=== PATIENT | male | born 1945 | race Caucasian/White ===

== ENCOUNTER 2016-08-10 09:17 | Observation (INO) | payer MEDICARE ==
[~2016-08-10] VITALS: Ht 185.4 cm; Wt 81.6 kg
[2016-08-10 09:59] LABS: Basophils # (auto) 0.1 uL; Basophils % (auto) 1.1 % (0.0-2.0); Eosinophils # (auto) 0.2 uL; Eosinophils % (auto) 1.5 % (0.0-7.0); Hematocrit 50.8 % (41.0-53.0); Hemoglobin 16.9 g/dL (13.5-17.5); Lymphocytes # (auto) 1.6 uL; Lymphocytes % (auto) 12.2 % (10.0-50.0); Mean Corpuscular Hemoglobin 31.5 pg (28.0-32.0); Mean Corpuscular Hgb Conc. 33.2 g/dL (32.0-36.0); Mean Corpuscular Volume 94.8 fL (80.0-100.0); Mean Platelet Volume 10.2 fL (7.4-10.4); Monocytes # (auto) 1.1 uL; Monocytes % (auto) 8.8 % (0.0-12.0); Neutrophils # (auto) 9.9 uL; Neutrophils % (auto) 76.4 % (37.0-80.0); Platelet Count (auto) 271 10^3/uL (140-450); Red Cell Distribution Width 14.2 % (11.6-16.0); SUSPECT VIEW TRANSMISSION; White Blood Cell 12.9 10^3/uL (4.4-10.8)
[2016-08-10 10:28] LABS: Albumin 3.6 g/dL (3.4-5.0); Alkaline Phosphatase 54 U/L (45-117); Anion Gap 7 (5-15); Aspartate Aminotransferase 14 U/L (15-37); BUN/Creatinine Ratio 12.5; Bilirubin, Total 0.7 mg/dL (0.2-1.0); Blood Urea Nitrogen 27 mg/dL (7-18); Calcium 9.2 mg/dL (8.5-10.1); Carbon Dioxide 26 mmol/L (21-32); Chloride 109 mmol/L (98-107); GFR African American 39 mL/min; GFR Non-African American 32 mL/min; Glucose 182 mg/dL (74-106); Potassium 3.9 mmol/L (3.5-5.1); Sodium 142 mmol/L (136-145); Total Protein 7.6 g/dL (6.4-8.2)
[2016-08-10 11:22] LABS: Urine Bilirubin Negative (Negative); Urine Blood Negative /uL (Negative); Urine Color Yellow (Yellow); Urine Glucose Normal (Normal); Urine Ketone Negative (Negative); Urine Nitrite Negative (Negative); Urine RBC 1 /hpf (0 - 3); Urine Squamous Epithelial Cell FEW /hpf (<5); Urine Urobilinogen Normal (Negative); Urine pH 5.5 (5.0-8.0)
[2016-08-10 15:32] VITALS: BP 160/80
== END 2016-08-10 15:55 | disposition home or self-care (01) | DRG 880 ==
LOC: ER 09:17 → OVERFLOW 11:13 → ER 15:55
PROVIDERS: ADMIT Emergency Medicine; ATTEND Emergency Medicine
DX: F41.9 Anxiety disorder, unspecified (principal); F32.9 Major depressive disorder, single episode, unspecified; R10.9 Unspecified abdominal pain
CPT/HCPCS: 36415; 80053; 81001; 82962; 83690; 84484; 85025; 93005; 99285; G0378

== ENCOUNTER 2019-10-13 11:28 | Inpatient (IN) | payer MEDICARE ==
[~2019-10-13] VITALS: Ht 185.4 cm; Wt 93.6 kg
[2019-10-13 12:55] LABS: Basophils # (auto) 0.1 10 ^3/uL (0-0.2); Basophils % (auto) 0.9 % (0.0-2.0); Eosinophils # (auto) 0.2 10 ^3/uL (0-0.8); Eosinophils % (auto) 2.4 % (0.0-7.0); Hematocrit 45.5 % (41.0-53.0); Hemoglobin 14.7 g/dL (13.5-17.5); Lymphocytes % (auto) 10.3 % (10.0-50.0); Mean Corpuscular Hgb Conc. 32.3 g/dL (32.0-36.0); Mean Corpuscular Volume 95.8 fL (80.0-100.0); Monocytes # (auto) 0.8 10 ^3/uL (0-1.3); Monocytes % (auto) 8.5 % (0.0-12.0); Neutrophils # (auto) 7.6 10 ^3/uL (1.6-8.6); Neutrophils % (auto) 77.9 % (37.0-80.0); Platelet Count (auto) 261 10^3/uL (140-450); Red Blood Cells 4.75 10^6/uL (4.5-5.90); Red Cell Distribution Width 13.8 % (11.8-14.3); White Blood Cell 9.7 10^3/uL (4.4-10.8)
[2019-10-13 13:16] LABS: Albumin 3.4 g/dL (3.4-5.0); Anion Gap 7 (5-15); Blood Urea Nitrogen 55 mg/dL (7-18); Calcium 8.5 mg/dL (8.5-10.1); Carbon Dioxide 23 mmol/L (21-32); Chloride 108 mmol/L (98-107); Glucose 150 mg/dL (74-106); Potassium 5.4 mmol/L (3.5-5.1); Sodium 138 mmol/L (136-145)
[2019-10-13 13:22] LABS: Alanine Aminotransferase 28 U/L (16-61); Alkaline Phosphatase 67 U/L (45-117); Aspartate Aminotransferase 12 U/L (15-37); BUN/Creatinine Ratio 17.4; Bilirubin, Total 0.4 mg/dL (0.2-1.0); GFR African American 25 mL/min; GFR Non-African American 21 mL/min; Total Protein 7.4 g/dL (6.4-8.2)
[2019-10-13 18:57] LABS: Urine Bacteria NONE SEEN /hpf (None Seen); Urine Blood Negative /uL (Negative); Urine Hyaline Cast FEW /lpf (0 - 2); Urine Specific Gravity 1.017 (1.001-1.035); Urine WBC 3 /hpf (0 - 3)
[2019-10-13] MEDS ORDERED: DEXTROSE (50%) 50ML SYRG IV PRN (20:00)
[2019-10-13] MEDS ORDERED: METOCLOPRAMIDE HCL 5MG/ml INJ 2ml VIAL IV PRN (20:00)
[2019-10-13] MEDS ORDERED: InsuLIN REG 1unit/0.01ml Soln (100units/ml) IV ONE (20:00)
[2019-10-13] MEDS ORDERED: SODIUM ZIRCONIUM CYCL 10 GM PAK PO ONE (20:00)
[2019-10-13] MEDS ORDERED: ALBUTEROL SULF 2.5 MG/0.5ML(0.5%) NEB SOLN NEB ONE (20:00)
[2019-10-13] MEDS ORDERED: SODIUM BICARBONATE 8.4% INJ 50ML SYRINGE IV ONE (20:00)
[2019-10-13] MEDS ORDERED: DOCUSATE SOD 100 MG CAP PO PRN (20:00)
[2019-10-13] MEDS ORDERED: hydrALAZINE HCL 20 MG/ML VL IV PRN (20:00)
[2019-10-13] MEDS ORDERED: CALCIUM CHL 100MG/ML 500 MG in D5W 5% 100 ML IV ONE (20:00)
[2019-10-13] MEDS ORDERED: NITROGLYCERIN 0.4 MG SL TAB SL PRN (20:00)
[2019-10-13] MEDS ORDERED: ALUM & MAG HYDROX-SIMETH LIQ(MAALOX) 30 ML PO PRN (20:00)
[2019-10-13] MEDS ORDERED: HYDROcodone-ACET 5/325MG TAB PO PRN (20:00)
[2019-10-13] MEDS ORDERED: FUROSEMIDE 40 MG/4 ML VIAL IV ONE (20:00)
[2019-10-13] MEDS ORDERED: LACTATED RINGER'S 1,000 ML IV ONE (20:00)
[2019-10-13] MEDS ORDERED: MORPHINE SULF INJ 2 MG/ML SYRINGE 1ML IV PRN ×2 (20:00)
[2019-10-13] MEDS ORDERED: DEXTROSE (50%) 50ML SYRG IV ONE (20:15)
[2019-10-13 20:43] LABS: Amphetamine Screen, Urine NEGATIVE (NEGATIVE); Barbiturate Scree,Urine NEGATIVE (NEGATIVE); Benzodiazephine Screen, Urine NEGATIVE (NEGATIVE); Cannabinoid Screen, Urine NEGATIVE (NEGATIVE); Cocaine Screen, Urine NEGATIVE (NEGATIVE); Opiate Scree,Urine NEGATIVE (NEGATIVE); Phencyclidine Screen, Urine NEGATIVE (NEGATIVE)
[2019-10-13 22:03] VITALS: BP 138/86
--- NOTE | 2019-10-13 22:03 | NUR ---
ADMISSION NOTE PT ADMITTED TO ROOM 274-B IN STABLE COND. PT ORIENTED TO ROOM AND PROCEDURES AND POC DISCUSSED WITH PT. pT VERBALIZES UNDERSTANDING. PT IS RASHID PO FLUIDS AT THIS TIME AND IS NOTED TO HAVE SOME HAND TREMORS THAT PT STATES HE HAS HAD SINCE 1700 THIS EVENING. WHEN ASKED IF HE DRINKS ANY ALCOHOLIC BEVERAGES PT DENIES ANY ALCOHOL AT ALL. BED IS LOW , WHEELS ARE LOCKED, AND CALL LIGHT IS WITH IN REACH.
[2019-10-13] MEDS: LACTATED RINGER'S 1,000 ML IV SCH (22:52)
[2019-10-13] MEDS: SODIUM ZIRCONIUM CYCL 10 GM PAK PO SCH (22:54)
[2019-10-13] MEDS: hydrALAZINE HCL 25 MG TAB PO SCH (22:54)
[2019-10-13] MEDS: METOPROLOL TARTRATE 25 MG TAB PO SCH (22:55)
[2019-10-13 22:56] VITALS: BP 138/86
[2019-10-13] MEDS: InsuLIN REG 1unit/0.01ml Soln (100units/ml) SC SCH (22:57)
[2019-10-13] MEDS: INSULIN LANTUS (GLARGINE) 1 /0.01ml (100units/ml) SC SCH (22:58)
[2019-10-13] MEDS: ACCU-CHEK COMFORT CURVE STRIP VI SCH (22:59)
[2019-10-13 23:30] LABS: Cholesterol 126 mg/dL (< 200); HDL Cholesterol 36 mg/dL (40-59); LDL Cholesterol 67 mg/dL (< 100); Triglycerides 156 mg/dL (< 150)
[2019-10-14] MEDS: LORazepam 0.5 MG TAB PO PRN ×2 (01:42→21:44)
[2019-10-14 04:57] VITALS: BP 112/57
[2019-10-14 05:56] LABS: Basophils # (auto) 0 10 ^3/uL (0-0.2); Basophils % (auto) 0.5 % (0.0-2.0); Eosinophils # (auto) 0.2 10 ^3/uL (0-0.8); Eosinophils % (auto) 1.7 % (0.0-7.0); Hemoglobin 12.9 g/dL (13.5-17.5); Lymphocytes # (auto) 1.3 10 ^3/uL (0.4-5.4); Lymphocytes % (auto) 12.5 % (10.0-50.0); Mean Corpuscular Hemoglobin 31.3 pg (28.0-32.0); Monocytes # (auto) 1.2 10 ^3/uL (0-1.3); Monocytes % (auto) 11.4 % (0.0-12.0); Neutrophils # (auto) 7.5 10 ^3/uL (1.6-8.6); Neutrophils % (auto) 73.9 % (37.0-80.0); Platelet Count (auto) 228 10^3/uL (140-450); Red Blood Cells 4.11 10^6/uL (4.5-5.90); Red Cell Distribution Width 13.7 % (11.8-14.3); White Blood Cell 10.2 10^3/uL (4.4-10.8)
[2019-10-14 06:08] LABS: Calcium 8.7 mg/dL (8.5-10.1); Magnesium 2.2 mg/dL (1.6-2.6); Potassium 4.1 mmol/L (3.5-5.1)
[2019-10-14 06:12] LABS: BUN/Creatinine Ratio 19.5; Bilirubin, Total 0.3 mg/dL (0.2-1.0); INR 0.99 (0.9-1.15); Partial Thromboplastin Time 24.9 sec (23.64-32.05); Phosphorus 4.4 mg/dL (2.5-4.90); Total Protein 6.1 g/dL (6.4-8.2)
--- NOTE | 2019-10-14 06:45 | NUR ---
Pt's glucose =38 and then rechecked for 37. Pt given juice and milk and jello and he is emilee well. Pt is asymptomatic at this time. A&O x 4, resp rate is even and unlabored, color is wnl and skin is warm and dry.
[2019-10-14] MEDS: FUROSEMIDE 40 MG/4 ML VIAL IV SCH ×2 (06:53→17:58)
[2019-10-14] MEDS: SODIUM ZIRCONIUM CYCL 10 GM PAK PO SCH (06:53)
[2019-10-14] MEDS: SUCRALFATE 1 GM/10 ML ORAL SUSP PO SCH ×3 (06:53→17:21)
[2019-10-14] MEDS: InsuLIN REG 1unit/0.01ml Soln (100units/ml) SC SCH ×4 (06:54→21:43)
[2019-10-14] MEDS: INSULIN LISPRO (HUMAN) 100 UNITS/ML ML SC SCH ×3 (06:54→18:02)
[2019-10-14] MEDS: ACCU-CHEK COMFORT CURVE STRIP VI SCH ×4 (06:55→21:44)
--- NOTE | 2019-10-14 07:12 | NUR ---
GLUCOSE RECHECK= 124.
[2019-10-14 09:00] VITALS: BP 141/49
[2019-10-14] MEDS: hydrALAZINE HCL 25 MG TAB PO SCH ×2 (09:14→21:43)
[2019-10-14] MEDS: METOPROLOL TARTRATE 25 MG TAB PO SCH ×2 (09:14→21:42)
[2019-10-14] MEDS: PANTOPRAZOLE 40 MG/10 ML VIAL INJ IV SCH (09:14)
[2019-10-14] MEDS: CITALOPRAM HYDROBR 20 MG TAB PO SCH (09:14)
[2019-10-14] MEDS: ENOXAPARIN SOD 30 MG/0.3 ML SYRINGE SC SCH (09:15)
[2019-10-14] MEDS: LACTATED RINGER'S 1,000 ML IV SCH (09:20)
[2019-10-14] MEDS ORDERED: PANT40TA2 PO (10:31)
[2019-10-14] MEDS ORDERED: SIMV40TA96 PO (10:31)
[2019-10-14] MEDS ORDERED: SUCR1TAB38 OR (10:31)
[2019-10-14] MEDS ORDERED: IRON100T OR (10:31)
[2019-10-14] MEDS ORDERED: CITA-77 PO (10:31)
[2019-10-14] MEDS ORDERED: ONDA-144 PO (10:31)
[2019-10-14] MEDS ORDERED: ALBU108A14 IN (10:31)
[2019-10-14] MEDS ORDERED: OMEP20TA PO (10:31)
[2019-10-14] MEDS ORDERED: FURO1TAB33 PO (10:31)
[2019-10-14] MEDS ORDERED: ALBU2TAB4 PO (10:31)
[2019-10-14] MEDS ORDERED: MULTCAP45 PO (10:31)
[2019-10-14] MEDS ORDERED: [UNRECOGNIZED DRUG - CODE] IM (10:31)
[2019-10-14] MEDS ORDERED: LORA0.5T12 PO (10:31)
[2019-10-14] MEDS ORDERED: INSLISPI SC (10:31)
[2019-10-14] MEDS ORDERED: CALC600T57 PO (10:31)
[2019-10-14] MEDS ORDERED: LORA1TAB12 PO (10:31)
[2019-10-14] MEDS ORDERED: IRBE300T46 PO (10:31)
[2019-10-14] MEDS ORDERED: ASCO500T11 PO (10:35)
[2019-10-14 13:00] VITALS: BP 137/68
--- NOTE | 2019-10-14 13:28 | NUR ---
spoke with Dr. Graves to clarify lokelma medication, K is 4.1, received order to DC thee and CMP tomorrow.
[2019-10-14 14:53] LABS: Protein, Urine 25.4 mg/dL (0.0-11.9)
[2019-10-14 16:43] VITALS: BP 153/73
--- NOTE | 2019-10-14 19:30 | NUR ---
assumed care, pt. awake, no c/o pain, no sob.
[2019-10-14 21:30] VITALS: BP 151/78
[2019-10-14] MEDS: INSULIN LANTUS (GLARGINE) 1 /0.01ml (100units/ml) SC SCH (21:44)
[2019-10-15 05:00] VITALS: BP 141/82
[2019-10-15] MEDS: FUROSEMIDE 40 MG/4 ML VIAL IV SCH (05:41)
[2019-10-15] MEDS: SUCRALFATE 1 GM/10 ML ORAL SUSP PO SCH (06:11)
[2019-10-15] MEDS: InsuLIN REG 1unit/0.01ml Soln (100units/ml) SC SCH (06:14)
[2019-10-15] MEDS: INSULIN LISPRO (HUMAN) 100 UNITS/ML ML SC SCH (06:14)
[2019-10-15] MEDS: ACCU-CHEK COMFORT CURVE STRIP VI SCH (06:15)
[2019-10-15 07:42] LABS: Basophils # (auto) 0.1 10 ^3/uL (0-0.2); Basophils % (auto) 0.7 % (0.0-2.0); Eosinophils # (auto) 0.3 10 ^3/uL (0-0.8); Eosinophils % (auto) 3.5 % (0.0-7.0); Hematocrit 42.6 % (41.0-53.0); Hemoglobin 14.5 g/dL (13.5-17.5); Lymphocytes # (auto) 1.4 10 ^3/uL (0.4-5.4); Lymphocytes % (auto) 15.2 % (10.0-50.0); Mean Corpuscular Hgb Conc. 33.9 g/dL (32.0-36.0); Mean Corpuscular Volume 94.4 fL (80.0-100.0); Monocytes # (auto) 1.1 10 ^3/uL (0-1.3); Monocytes % (auto) 11.6 % (0.0-12.0); Neutrophils # (auto) 6.4 10 ^3/uL (1.6-8.6); Nucleated Red Blood Cells % 0.1 %; Platelet Count (auto) 243 10^3/uL (140-450); Red Blood Cells 4.51 10^6/uL (4.5-5.90); Red Cell Distribution Width 13.5 % (11.8-14.3); White Blood Cell 9.2 10^3/uL (4.4-10.8)
--- NOTE | 2019-10-15 07:43 | NUR ---
Opening Note Assumed pt care from NOC RN. Pt is a/ox4 with no s/s of distress or SOB. Pt is currently sitting upright in bed eating breakfast with no complaints at this time. Discussed POC with pt; pt verbalized understanding. Safety measures maintained with call light within reach, bed in lowest position and side rails up. Will continue to monitor.
[2019-10-15 07:58] LABS: Albumin 3.3 g/dL (3.4-5.0); Calcium 8.9 mg/dL (8.5-10.1)
[2019-10-15 08:03] LABS: BUN/Creatinine Ratio 18.9; Bilirubin, Total 0.4 mg/dL (0.2-1.0)
[2019-10-15 08:20] VITALS: BP 135/74
[2019-10-15] MEDS: PANTOPRAZOLE 40 MG/10 ML VIAL INJ IV SCH (09:01)
[2019-10-15] MEDS: hydrALAZINE HCL 25 MG TAB PO SCH (09:02)
[2019-10-15] MEDS: METOPROLOL TARTRATE 25 MG TAB PO SCH (09:02)
[2019-10-15] MEDS: ENOXAPARIN SOD 30 MG/0.3 ML SYRINGE SC SCH (09:02)
[2019-10-15] MEDS: CITALOPRAM HYDROBR 20 MG TAB PO SCH (09:02)
--- NOTE | 2019-10-15 09:55 | NUR ---
Dr Graves at bedside MD to see pt. Discussed plan to d/c pt home today. requests that pt f/u with Dr Louis. Will implement and continue to monitor.
[2019-10-15] MEDS ORDERED: SODIUM ZIRCONIUM CYCL 10 GM PAK PO SCH (10:00)
[2019-10-15 10:11] VITALS: BP 135/74
--- NOTE | 2019-10-15 10:35 | NUR ---
IV and Tele Box 66 Removed IV to pt's R AC removed. Catheter was removed fully intact. Site is asymptomatic. Pressure was applied to site for 3 minutes with gauze and then wrapped in coban. Pt instructed to keep dressing on for 30 minutes; pt verbalized understanding. Tele 66 removed. Will send back to ICU. Staff made aware of d/c.
--- NOTE | 2019-10-15 10:42 | NUR ---
Pt D/C'ed Off Unit Pt d/c'ed off unit. Pt ambulated off unit. Pt is a/ox4 with no s/s of distress or SOB. Pt provided all education material, follow up information, prescriptions and all belongings. All questions were answered. IV and tele box were removed prior to d/c.
== END 2019-10-15 10:47 | disposition home or self-care (01) | DRG 682 ==
LOC: ER 11:28 → TELE 11:29 → TELE-WESTW 22:03
PROVIDERS: ADMIT Hospitalist; ATTEND Hospitalist
DX: N17.9 Acute kidney failure, unspecified (principal); G93.41 Metabolic encephalopathy; I13.2 Hypertensive heart and chronic kidney disease with heart failure and with stage 5 chronic kidney disease, or end stage renal disease; E87.5 Hyperkalemia; N18.6 End stage renal disease; E11.22 Type 2 diabetes mellitus with diabetic chronic kidney disease; E11.40 Type 2 diabetes mellitus with diabetic neuropathy, unspecified; K29.70 Gastritis, unspecified, without bleeding; E11.65 Type 2 diabetes mellitus with hyperglycemia; E66.9 Obesity, unspecified; Z68.27 Body mass index [BMI] 27.0-27.9, adult; E78.5 Hyperlipidemia, unspecified; E86.0 Dehydration; F32.9 Major depressive disorder, single episode, unspecified; F41.9 Anxiety disorder, unspecified; I50.9 Heart failure, unspecified; J44.9 Chronic obstructive pulmonary disease, unspecified; Z80.0 Family history of malignant neoplasm of digestive organs; Z80.3 Family history of malignant neoplasm of breast; Z87.891 Personal history of nicotine dependence; Z99.2 Dependence on renal dialysis; Z90.89 Acquired absence of other organs; Z79.899 Other long term (current) drug therapy; Z79.4 Long term (current) use of insulin
CPT/HCPCS: 36415; 76775; 80053; 80061; 80307; 81001; 82085; 82550; 82570; 82962; 83036; 83735; 84100; 84132; 84156; 84484; 85025; 85610; 85730; 87040; 87086; 93005; 93306; 94640; 96365; 96367; 96375; C9113; G0378; J1815; J7060

== ENCOUNTER 2019-11-26 14:04 | Inpatient (IN) | payer MEDICARE ==
[~2019-11-26] VITALS: Ht 185.4 cm; Wt 96.5 kg
[~2019-11-26 14:04] MED LIST: ALBU108A14 IN; ALBU2TAB4 PO; ASCO500T11 PO; CALC600T57 PO; CITA-77 PO; FURO1TAB33 PO; INSLISPI SC; IRBE300T43 PO; IRON100T OR; LORA0.5T20 PO; LORA1TAB23 PO; MULTCAP45 PO; OMEP20TA PO; ONDA-144 PO; PANT40TA2 PO; SIMV40TA96 PO; SUCR1TAB22 OR; [UNRECOGNIZED DRUG - CODE] IM
[2019-11-26 14:55] LABS: Basophils # (auto) 0.1 10 ^3/uL (0-0.2); Basophils % (auto) 0.9 % (0.0-2.0); Eosinophils # (auto) 0.2 10 ^3/uL (0-0.8); Eosinophils % (auto) 2.2 % (0.0-7.0); Hematocrit 41.2 % (41.0-53.0); Hemoglobin 13.6 g/dL (13.5-17.5); Lymphocytes # (auto) 1.1 10 ^3/uL (0.4-5.4); Lymphocytes % (auto) 11.8 % (10.0-50.0); Mean Corpuscular Hemoglobin 31.3 pg (28.0-32.0); Mean Corpuscular Volume 95.1 fL (80.0-100.0); Monocytes % (auto) 9.9 % (0.0-12.0); Neutrophils # (auto) 7.3 10 ^3/uL (1.6-8.6); Neutrophils % (auto) 75.2 % (37.0-80.0); Platelet Count (auto) 250 10^3/uL (140-450); Red Blood Cells 4.33 10^6/uL (4.5-5.90); Red Cell Distribution Width 13.4 % (11.8-14.3); White Blood Cell 9.7 10^3/uL (4.4-10.8)
[2019-11-26 15:10] LABS: Albumin 3.3 g/dL (3.4-5.0); Anion Gap 5 (5-15); Blood Urea Nitrogen 43 mg/dL (7-18); Calcium 8.7 mg/dL (8.5-10.1); Carbon Dioxide 23 mmol/L (21-32); Chloride 115 mmol/L (98-107); Glucose 95 mg/dL (74-106); Potassium 4.8 mmol/L (3.5-5.1); Sodium 143 mmol/L (136-145)
[2019-11-26 15:16] LABS: Alanine Aminotransferase 22 U/L (16-61); Alkaline Phosphatase 58 U/L (45-117); Aspartate Aminotransferase 8 U/L (15-37); Bilirubin, Total 0.4 mg/dL (0.2-1.0); GFR African American 31 mL/min; GFR Non-African American 26 mL/min; Total Protein 7.1 g/dL (6.4-8.2)
[2019-11-26 15:17] LABS: BUN/Creatinine Ratio 16.4
[2019-11-26] MEDS ORDERED: MORPHINE SULF INJ 2 MG/ML SYRINGE 1ML IV PRN ×2 (18:15)
[2019-11-26] MEDS ORDERED: NITROGLYCERIN 0.4 MG SL TAB SL PRN (18:15)
[2019-11-26] MEDS ORDERED: ONDANSETRON HCL 4 MG/2 ML VIAL IV PRN (18:15)
[2019-11-26 19:01] LABS: Basophils # (auto) 0.1 10 ^3/uL (0-0.2); Eosinophils # (auto) 0.2 10 ^3/uL (0-0.8); Eosinophils % (auto) 1.9 % (0.0-7.0); Hemoglobin 13.8 g/dL (13.5-17.5); Lymphocytes # (auto) 1.2 10 ^3/uL (0.4-5.4); Lymphocytes % (auto) 10.1 % (10.0-50.0); Mean Corpuscular Hgb Conc. 32.1 g/dL (32.0-36.0); Mean Corpuscular Volume 96.6 fL (80.0-100.0); Monocytes # (auto) 1.1 10 ^3/uL (0-1.3); Monocytes % (auto) 9.4 % (0.0-12.0); Neutrophils # (auto) 8.9 10 ^3/uL (1.6-8.6); Neutrophils % (auto) 77.6 % (37.0-80.0); Platelet Count (auto) 252 10^3/uL (140-450); Red Blood Cells 4.45 10^6/uL (4.5-5.90); Red Cell Distribution Width 13.9 % (11.8-14.3); White Blood Cell 11.5 10^3/uL (4.4-10.8)
[2019-11-26 19:18] LABS: Albumin 3.3 g/dL (3.4-5.0); Calcium 8.9 mg/dL (8.5-10.1)
[2019-11-26 19:20] LABS: BUN/Creatinine Ratio 15.1; Bilirubin, Total 0.3 mg/dL (0.2-1.0); Total Protein 7.1 g/dL (6.4-8.2)
[2019-11-27] MEDS: SODIUM CHLORIDE 0.9% 1,000 ML IV SCH ×3 (02:50→21:17)
[2019-11-27] MEDS ORDERED: LORazepam 2MG/ML-1ML VIAL ONE (05:30)
[2019-11-27] MEDS ORDERED: LORazepam 2MG/ML-1ML VIAL IV PRN ×2 (05:30→22:00)
--- NOTE | 2019-11-27 11:03 | NUR ---
Telemetry admit from ER RAMSEYKATE admitted to Telemetry unit after SBAR received. Patient oriented to Tiffany Machado, RN primary RN, unit, room, bed, and unit policies regarding patient care and visiting hours. Patient now on continuous telemetry monitoring, tele box # [id number] and telemetry reading on arrival to unit is SR. Patient encouraged to call if they need something. All questions and concerns addressed, patient verbalized understanding. Note:
[2019-11-27 11:07] VITALS: BP 155/84
[2019-11-27] MEDS ORDERED: INSU1.2I SC (12:11)
[2019-11-27] MEDS ORDERED: ONDA-188 PO (12:11)
[2019-11-27] MEDS ORDERED: CHOL100083 PO (12:12)
[2019-11-27] MEDS ORDERED: OMEGCAP2 PO (12:12)
[2019-11-27] MEDS ORDERED: ROPI0.254 PO (12:30)
[2019-11-27] MEDS ORDERED: HYDR-4296 PO (12:30)
--- NOTE | 2019-11-27 12:30 | NUR ---
PATIENT STATES HE HAS GI ISSUES AND THAT HE CAME IN BECAUSE HE THOUGHT HE WAS HAVING A STROKE.
[2019-11-27 13:19] VITALS: BP 155/84
--- NOTE | 2019-11-27 14:21 | NUR ---
DR TEAGUE ORDERED PATIENT HOME MEDICATIONS BY TELEPHONE.
[2019-11-27] MEDS ORDERED: TESTOSTERONE ENANTHATE 200 MG IM SCH (14:45)
[2019-11-27] MEDS ORDERED: ALBUTEROL SULF 2.5 MG/0.5ML(0.5%) NEB SOLN NEB PRN (14:45)
--- NOTE | 2019-11-27 15:32 | NUR ---
PATIENT UPDATED THAT HOME MEDS ORDERED BY DR ALCANTAR.
[2019-11-27 17:00] VITALS: BP 150/80
--- NOTE | 2019-11-27 17:00 | NUR ---
PATIENT IN BED AAOX4, BED LOW POSITION, CALL LIGHT WITHIN REACH.
[2019-11-27] MEDS ORDERED: ALBUTEROL SULFATE 90 MCG IN SCH (18:00)
[2019-11-27] MEDS: SUCRALFATE 1 GM TAB PO SCH (18:37)
--- NOTE | 2019-11-27 18:40 | NUR ---
PATIENT STATES HE TAKES HIS PROTONIX AT MEAL TIMES, MEDICATION ADJUSTED TO PATIENT HOME MED TIME.
--- NOTE | 2019-11-27 19:05 | NUR ---
RT NOTE: PT ASSESSED FOR PEN MED NEB TX, PT DENIES SOB, PT ON RA SPO2 95%,HR 78,RR 18. NO TX INDICATED AT THIS TIME.
--- NOTE | 2019-11-27 19:15 | NUR ---
OPENING SHIFT NOTE: Assumed care of patient. Patient awake, alert and oriented x 4, no s/s of SOb or distress and patient denies pain. Bed in lowest locked position with two side rails raised and call mary within reach. Instructed on POC and encouraged to call for assistance, all questions and concerns addressed, patient verbalized understanding. Will continue to monitor Q1 hr and PRN.
--- NOTE | 2019-11-27 19:19 | NUR ---
REPORT GIVEN TO TRANSCRIBING OPERATORS SUPERVISOR RN LONI. PATIENT WAITING FOR PROTONIX ORDER TO PROCESS, TRANSCRIBING OPERATORS SUPERVISOR AWARE. NEXT SHIFT WILL ASSUME CARE OF PATIENT.
[2019-11-27 20:00] VITALS: BP 177/90
[2019-11-27] MEDS: PANTOPRAZOLE 40 MG TAB PO SCH (21:17)
[2019-11-27] MEDS: hydrALAZINE HCL 25 MG TAB PO SCH (21:18)
[2019-11-27] MEDS: LORazepam 0.5 MG TAB PO SCH (21:18)
[2019-11-27 22:00] VITALS: BP 177/90
[2019-11-27] MEDS ORDERED: PANTOPRAZOLE 40 MG TAB PO SCH (22:00)
[2019-11-28] VITALS (8 sets, daily range): BP systolic 119–177; BP diastolic 55–90
[2019-11-28] MEDS: SUCRALFATE 1 GM TAB PO SCH ×2 (06:03→17:05)
--- NOTE | 2019-11-28 06:20 | NUR ---
Respiratory note: PRN MED NEB NOT INDICATED OR WANTED AT THIS TIME. HR 72, RR 16, SPO2 94% ON RA, BS CLEAR DIMINISHED. PT SAYS HES HAVING NO RESPIRATORY DISTRESS AT THIS TIME. PT INFORMED TO HIT CALL BUTTON IF FEELING SOB OR WHEEZING.
--- NOTE | 2019-11-28 07:30 | NUR ---
RECEIVED REPORT FROM NIGHT NURSE. PATIENT RESTING IN BED, NO DISTRESS NOTED. WILL CONTINUE TO MONITOR.
[2019-11-28] MEDS: PANTOPRAZOLE 40 MG TAB PO SCH ×2 (08:47→17:05)
[2019-11-28] MEDS: SODIUM CHLORIDE 0.9% 1,000 ML IV SCH ×2 (08:47→21:38)
[2019-11-28] MEDS: INSULIN LISPRO (HUMAN) 100 UNITS/ML ML SC SCH (08:48)
[2019-11-28] MEDS ORDERED: PANTOPRAZOLE 40 MG TAB PO SCH (10:00)
[2019-11-28] MEDS: Calcium Carbonate (Calcium) 600 MG TAB PO SCH (10:00)
[2019-11-28] MEDS: LORazepam 0.5 MG TAB PO SCH ×2 (10:00→21:40)
[2019-11-28] MEDS: IRON VITAMIN C PO SCH (10:00)
[2019-11-28] MEDS ORDERED: OMEPRAZOLE 40 MG PO SCH (10:00)
[2019-11-28] MEDS: CHOLECALCIFEROL (VITD3) 1,000UNIT=25mCg TAB PO SCH (10:11)
[2019-11-28] MEDS: ASPirin 81 mg TAB PO SCH (10:12)
[2019-11-28] MEDS: MULTIPLE VITAMIN TAB PO SCH (10:12)
[2019-11-28] MEDS: FUROSEMIDE 20 MG TAB PO SCH (10:12)
[2019-11-28] MEDS: CITALOPRAM HYDROBR 20 MG TAB PO SCH (10:12)
[2019-11-28] MEDS: ONDANSETRON ODT 4 MG TAB PO SCH (10:12)
[2019-11-28] MEDS: ATORVASTATIN 20 MG TAB PO SCH (10:13)
[2019-11-28] MEDS: hydrALAZINE HCL 25 MG TAB PO SCH ×2 (10:13→21:39)
[2019-11-28] MEDS: ASCORBIC ACID 500 MG TAB PO SCH (10:13)
[2019-11-28] MEDS: INSULIN LANTUS (GLARGINE) 1 /0.01ml (100units/ml) SC SCH (10:57)
--- NOTE | 2019-11-28 15:16 | NUR ---
DOCTOR HO AT BEDSIDE.
--- NOTE | 2019-11-28 19:10 | NUR ---
OPENING SHIFT NOTE: Assumed care of patient. Patient awake, alert and oriented x 4. No s/s of SOB or distress and patient denies pain. Bed in lowest locked position with two side rails raised and call mary within reach. Instructed on POC and encouraged to call for assistance, all questions and concerns addressed, patient verbalizes understanding. Will continue to monitor Q1 hr and PRN.
--- NOTE | 2019-11-28 19:23 | NUR ---
ASSESSED PT @ THIS TIME FOR PRN MED NEB TX. PT IS AWAKE AND ALERT AND SITTING UP IN BED. HE STATES HIS BREATHING IS DOING FINE. NO DISTRESS NOTED. CURRENTLY ON R/A SPO2 94%, HR 77, RR 16 AND BS ARE DIMINISHED T/O. HE IS AWARE TO CALL IF HE FEEL SOB.
--- NOTE | 2019-11-28 20:00 | NUR ---
IV Discontinued/Inserted Left AC IV discontinued, catheter tip intact and pressure dressing applied. New IV inserted to the left forearm using clean technique. Patient tolerated well.
[2019-11-29 05:00] VITALS: BP 155/73
[2019-11-29] MEDS: SUCRALFATE 1 GM TAB PO SCH ×2 (06:33→18:16)
--- NOTE | 2019-11-29 07:30 | NUR ---
Opening Shift Note Assumed care of patient, awake and alert. No S/S of distress/SOB or pain. Instructed on POC and to call for assist PRN, will continue to monitor for changes Q1hr and PRN. Bed is locked and in lowest position. Call light within reach.
[2019-11-29 08:00] VITALS: BP 152/69
[2019-11-29] MEDS: PANTOPRAZOLE 40 MG TAB PO SCH ×2 (08:00→18:16)
[2019-11-29] MEDS: SODIUM CHLORIDE 0.9% 1,000 ML IV SCH ×2 (08:45→21:15)
[2019-11-29 09:00] VITALS: BP 152/69
--- NOTE | 2019-11-29 09:02 | NUR ---
Respiratory note: ASSESSED PT @ THIS TIME FOR PRN MED NEB TX. PT IS AWAKE AND ALERT AND SITTING UP IN BED. HE STATES HIS BREATHING IS DOING FINE. NO DISTRESS NOTED. CURRENTLY ON R/A SPO2 93% ON ROOM AIR, HR 66, RR 16 AND BS ARE DIMINISHED T/O. HE IS AWARE TO CALL IF HE FEEL SOB.
[2019-11-29] MEDS: INSULIN LISPRO (HUMAN) 100 UNITS/ML ML SC SCH (09:09)
[2019-11-29] MEDS: LORazepam 0.5 MG TAB PO SCH ×2 (10:00→22:00)
[2019-11-29] MEDS: Calcium Carbonate (Calcium) 600 MG TAB PO SCH (10:00)
[2019-11-29] MEDS: IRON VITAMIN C PO SCH (10:00)
[2019-11-29] MEDS: ASPirin 81 mg TAB PO SCH (11:03)
[2019-11-29] MEDS: ASCORBIC ACID 500 MG TAB PO SCH (11:03)
[2019-11-29] MEDS: hydrALAZINE HCL 25 MG TAB PO SCH ×2 (11:03→22:00)
[2019-11-29] MEDS: FUROSEMIDE 20 MG TAB PO SCH (11:04)
[2019-11-29] MEDS: CHOLECALCIFEROL (VITD3) 1,000UNIT=25mCg TAB PO SCH (11:04)
[2019-11-29] MEDS: ATORVASTATIN 20 MG TAB PO SCH (11:04)
[2019-11-29] MEDS: CITALOPRAM HYDROBR 20 MG TAB PO SCH (11:04)
[2019-11-29] MEDS: ONDANSETRON ODT 4 MG TAB PO SCH (11:04)
[2019-11-29] MEDS: MULTIPLE VITAMIN TAB PO SCH (11:05)
[2019-11-29] MEDS: INSULIN LANTUS (GLARGINE) 1 /0.01ml (100units/ml) SC SCH (11:24)
[2019-11-29 13:00] VITALS: BP 139/69
[2019-11-29 17:00] VITALS: BP 143/75
--- NOTE | 2019-11-29 19:14 | NUR ---
RT NOTE PT WAS SEEN BY RT FOR PRN HHN TX. PT STATES NO TX NEEDED AT THIS TIME. HR 70, RR 16, BS CLEAR/DIM, POX 94% ON ROOM AIR. PT STATES HE WILL CALL IF TX NEEDED Addendum: 11/29/19 at 2004 by Winnie Live RT Amended: Links added.
--- NOTE | 2019-11-29 19:45 | NUR ---
Opening Shift Note Assumed care of patient, awake and A&Ox4. No S/S of distress/SOB or pain. Instructed on POC and to call for assist PRN, will continue to monitor for changes Q1hr and PRN. Bed rails up x2. Call light in reach. Bed in lowest locked position. Signed: 11/29/19 at 2114 by BLAISE MARTIN <Co-Signature Required> Co-Signed: 11/29/19 at 2114 by Mela Rico RN RN
--- NOTE | 2019-11-29 21:15 | NUR ---
Dr. Gray at bedside. Signed: 11/29/19 at 2118 by BLAISE MARTIN <Co-Signature Required> Co-Signed: 11/29/19 at 2118 by Mela Rico RN RN
[2019-11-29 22:00] VITALS: BP 147/72
[2019-11-30] VITALS (9 sets, daily range): BP systolic 119–155; BP diastolic 65–76
--- NOTE | 2019-11-30 00:20 | NUR ---
PT HAS BEEN REMOVED FROM CPAP BY REQUEST. PT DOES NOT WANT TO WEAR CPAP UNIT. CPAP AND BEDSIDE PULSE OX REMOVED FROM ROOM. SPO2 96% ON RA.
[2019-11-30] MEDS: SUCRALFATE 1 GM TAB PO SCH ×2 (07:00→17:38)
[2019-11-30] MEDS: PANTOPRAZOLE 40 MG TAB PO SCH ×2 (08:08→17:38)
[2019-11-30] MEDS: INSULIN LISPRO (HUMAN) 100 UNITS/ML ML SC SCH (08:11)
--- NOTE | 2019-11-30 08:56 | NUR ---
Respiratory note: PT ASSESSED FOR PRN TX. HR 65, RR 18, POX 96% ON RA, BREATH SOUNDS ARE CLEAR. NO SOB OR DISTRESS NOTED. PT WAS NOTIFY TO HAVE RT PAGE FOR NEEDED MN TX.
[2019-11-30] MEDS ORDERED: ACETAMINOPHEN 500 MG TAB PO PRN (10:00)
[2019-11-30] MEDS: Calcium Carbonate (Calcium) 600 MG TAB PO SCH (10:00)
[2019-11-30] MEDS: LORazepam 0.5 MG TAB PO SCH ×2 (10:00→22:46)
[2019-11-30] MEDS: IRON VITAMIN C PO SCH (10:00)
[2019-11-30 10:20] LABS: BUN/Creatinine Ratio 18.7; Calcium 8.2 mg/dL (8.5-10.1); Potassium 4.2 mmol/L (3.5-5.1)
[2019-11-30] MEDS: SODIUM CHLORIDE 0.9% 1,000 ML IV SCH ×2 (10:39→17:40)
[2019-11-30] MEDS: ASCORBIC ACID 500 MG TAB PO SCH (10:39)
[2019-11-30] MEDS: hydrALAZINE HCL 25 MG TAB PO SCH ×2 (10:40→22:46)
[2019-11-30] MEDS: ASPirin 81 mg TAB PO SCH (10:40)
[2019-11-30] MEDS: CHOLECALCIFEROL (VITD3) 1,000UNIT=25mCg TAB PO SCH (10:40)
[2019-11-30] MEDS: FUROSEMIDE 20 MG TAB PO SCH (10:41)
[2019-11-30] MEDS: MULTIPLE VITAMIN TAB PO SCH (10:41)
[2019-11-30] MEDS: CITALOPRAM HYDROBR 20 MG TAB PO SCH (10:41)
[2019-11-30] MEDS: ONDANSETRON ODT 4 MG TAB PO SCH (10:41)
[2019-11-30] MEDS: ATORVASTATIN 20 MG TAB PO SCH (10:42)
[2019-11-30] MEDS: INSULIN LANTUS (GLARGINE) 1 /0.01ml (100units/ml) SC SCH (11:02)
--- NOTE | 2019-11-30 12:23 | NUR ---
Nutrition Assessment Notes please see attached link for complete assessment. Est Energy needs BW 93 [id number] kcals (23-25 kcal/kgBW), Est Protein needs: 74-93 gms/day (0.8-1.0 gm/kgBW r/t elev RFT). Will continue to monitor and reassess prn.. Addendum: 11/30/19 at [address] Amended: Links added.
--- NOTE | 2019-11-30 14:59 | NUR ---
assessment Patient is a 74 year old male who is alert and oriented. Patients cognitive abilities are intact. Prior to admission patient lived home alone and functioned independently. Patient informed me he is able to care for his own ADLs. Per patient he will return home to his prior living arrangements post discharge and family will transport him home. Patient has no DME and no Oxygen prior to admission. Patient has been admitted for CVA. Patient informed me he has no deficits. Patient informed me he is doing well and has no needs. I offered patient home health and he refused stating it is not needed. Patient has no post discharge needs identified at this time. I informed patient he has a right to speak to a executive secretary social welfare regarding all care. I informed patient he has a right to participate in any and all discharge planning. Patient does not have a POA and advanced directive. I have offered patient information on POA and advanced directives. I informed the patient the advantages and benefits of having an Advanced Directive. Patient verbalized understanding and agreed to discharge plan. Addendum: 11/30/19 at 1512 by Gosia PANG Amended: Links added.
--- NOTE | 2019-11-30 19:25 | NUR ---
OPENING NOTE- NOC SHIFT PATIENT IS ALERT AND ORIENTED X4, ANSWERS IN COMPLETE SENTENCES AND MAKES APPROPRIATE EYE CONTACT. PATIENT IS WATCHING TV IN BED, BED IS LOCKED IN LOWEST POSITION, BED RAILS UP X2 AND HEAD OF BED IS UP >30 DEGREES. BEDSIDE TABLE WITHIN REACH, CALL LIGHT WITHIN REACH. DISCUSSED POC WITH PATIENT AND INSTRUCTED PATIENT TO CALL PRN; PATIENT VERBALIZED UNDERSTANDING. WILL CONTINUE TO MONITOR Q1H AND PRN.
[2019-11-30 19:38] LABS: Urine Bacteria NONE SEEN /hpf (None Seen); Urine Blood Negative /uL (Negative); Urine Mucus FEW (None Seen); Urine Specific Gravity 1.014 (1.001-1.035); Urine WBC <1 /hpf (0 - 3)
[2019-11-30 19:53] LABS: Protein, Urine 73.5 mg/dL (0.0-11.9)
--- NOTE | 2019-11-30 20:00 | NUR ---
DR URBINA AT BEDSIDE
--- NOTE | 2019-11-30 20:26 | NUR ---
PT ASSESSED FOR PRN MED NEB TX. SPO2 95% ON RA. PT STATES HE HASN'T USED AN INHALER IN OVER 4 MONTHS. NO TX INDICATED. PT REFUSING CPAP. PT IS AWARE TO HAVE RT PAGED IF TX NEEDED.
[2019-12-01] MEDS: SODIUM CHLORIDE 0.9% 1,000 ML IV SCH ×2 (02:01→10:00)
[2019-12-01 05:00] VITALS: BP 132/65
--- NOTE | 2019-12-01 05:30 | NUR ---
BS 46 PATIENT REPORTS SEEING "SPOTS" AND REQUESTED FOR BLOOD SUGAR CHECK. ORANGE JUICE AND SANDWICH PROVIDED.
[2019-12-01] MEDS: SUCRALFATE 1 GM TAB PO SCH (06:19)
[2019-12-01 06:21] LABS: Basophils # (auto) 0.1 10 ^3/uL (0-0.2); Basophils % (auto) 0.7 % (0.0-2.0); Eosinophils # (auto) 0.5 10 ^3/uL (0-0.8); Eosinophils % (auto) 4.5 % (0.0-7.0); Hematocrit 39.8 % (41.0-53.0); Hemoglobin 13.1 g/dL (13.5-17.5); Lymphocytes # (auto) 2.2 10 ^3/uL (0.4-5.4); Lymphocytes % (auto) 20.1 % (10.0-50.0); Mean Corpuscular Hemoglobin 32.2 pg (28.0-32.0); Mean Corpuscular Volume 97.6 fL (80.0-100.0); Monocytes # (auto) 1.3 10 ^3/uL (0-1.3); Monocytes % (auto) 12.3 % (0.0-12.0); Neutrophils # (auto) 6.8 10 ^3/uL (1.6-8.6); Neutrophils % (auto) 62.4 % (37.0-80.0); Nucleated Red Blood Cells % 0.1 %; Platelet Count (auto) 215 10^3/uL (140-450); Red Blood Cells 4.08 10^6/uL (4.5-5.90); Red Cell Distribution Width 13.8 % (11.8-14.3); White Blood Cell 10.9 10^3/uL (4.4-10.8)
[2019-12-01 06:44] LABS: BUN/Creatinine Ratio 18.6; Bilirubin, Total 0.4 mg/dL (0.2-1.0); Total Protein 6.5 g/dL (6.4-8.2)
--- NOTE | 2019-12-01 07:10 | NUR ---
BS RECHECK 188
--- NOTE | 2019-12-01 07:15 | NUR ---
ENDORSED PATIENT CARE TO DAY SHIFT NURSE WILMA RN. PATIENT IS COMFORTABLE IN BED. NO S/SX OF DISTRESS OR SOB. PATIENT DENIES PAIN AT THIS TIME. ENDORSED FOLLOW UP OF BLOOD SUGAR OF 188.
--- NOTE | 2019-12-01 07:30 | NUR ---
Opening Note Received report from warehouse shift supervisor RN. Patient is awake, alert and oriented x4. No signs or symptoms of distress noted at this time. Patient is on room air, respirations even and unlabored. Patient denies pain at this time. Reviewed plan of care with patient, patient verbalized understanding. Bed in low and locked position, call light within reach. Will continue to monitor Q1 hour and PRN.
[2019-12-01] MEDS: PANTOPRAZOLE 40 MG TAB PO SCH (08:00)
[2019-12-01] MEDS: INSULIN LISPRO (HUMAN) 100 UNITS/ML ML SC SCH (08:00)
[2019-12-01 09:00] VITALS: BP 159/81
--- NOTE | 2019-12-01 09:36 | NUR ---
Dr. Delong at bedside Discussing plan of care with patient and this RN. Patient to discharge home today. Will continue to monitor Q1 hour and PRN.
[2019-12-01] MEDS: LORazepam 0.5 MG TAB PO SCH (10:00)
[2019-12-01] MEDS: Calcium Carbonate (Calcium) 600 MG TAB PO SCH (10:00)
[2019-12-01] MEDS: CHOLECALCIFEROL (VITD3) 1,000UNIT=25mCg TAB PO SCH (10:00)
[2019-12-01] MEDS: IRON VITAMIN C PO SCH (10:00)
[2019-12-01] MEDS: INSULIN LANTUS (GLARGINE) 1 /0.01ml (100units/ml) SC SCH (10:00)
[2019-12-01] MEDS: ONDANSETRON ODT 4 MG TAB PO SCH (10:55)
[2019-12-01] MEDS: ASPirin 81 mg TAB PO SCH (10:55)
[2019-12-01] MEDS: ASCORBIC ACID 500 MG TAB PO SCH (10:55)
[2019-12-01] MEDS: FUROSEMIDE 20 MG TAB PO SCH (10:56)
[2019-12-01] MEDS: hydrALAZINE HCL 25 MG TAB PO SCH (10:56)
[2019-12-01] MEDS: ATORVASTATIN 20 MG TAB PO SCH (10:57)
[2019-12-01] MEDS: CITALOPRAM HYDROBR 20 MG TAB PO SCH (10:57)
[2019-12-01] MEDS: MULTIPLE VITAMIN TAB PO SCH (10:57)
[2019-12-01 11:28] VITALS: BP 159/81
--- NOTE | 2019-12-01 11:47 | NUR ---
Respiratory note: ASSESSED PT FOR PRN PT WAS AWAKE AND ALERT, NO RESP DISTRESS NOTED.HR 69,RR 16, SPO2 98% ON ROOM AIR. BS ARE CLEAR , NO INDICATION FOR TX AT THIS TIME. PT KNOWS TO HAVE RT PAGED IF TX IS NEEDED.
--- NOTE | 2019-12-01 13:30 | NUR ---
Discharge Discharge instructions given as ordered. Encourage to follow up with PMD as instructed. All questions and concerns addressed. Patient verbalized understanding. Medication reconciliation form completed and copy given to patient. IV removed with catheter intact, pressure dressing applied. Telemetry unit returned to ICU. Patient taken to vehicle via wheelchair with all personal belongings, accompanied by staff. No distress noted at time of departure. Patients belongings returned to this RN by greenhouse technician and given to patient.
== END 2019-12-01 12:39 | disposition home or self-care (01) | DRG 64 ==
LOC: ER 14:04 → TELE 14:05 → TELE-CENTR 11-27 11:33
PROVIDERS: ADMIT Internal Medicine; ATTEND Internal Medicine
PROC: 5A09357 Assistance with Respiratory Ventilation, Less than 24 Consecutive Hours, Continuous Positive Airway Pressure (ICD-10-PCS; principal; 2019-11-29)
DX: I63.9 Cerebral infarction, unspecified (principal); N17.0 Acute kidney failure with tubular necrosis; N18.4 Chronic kidney disease, stage 4 (severe); E11.40 Type 2 diabetes mellitus with diabetic neuropathy, unspecified; G47.10 Hypersomnia, unspecified; J44.9 Chronic obstructive pulmonary disease, unspecified; F32.9 Major depressive disorder, single episode, unspecified; F41.9 Anxiety disorder, unspecified; E11.22 Type 2 diabetes mellitus with diabetic chronic kidney disease; Z20.828 Contact with and (suspected) exposure to other viral communicable diseases; F17.200 Nicotine dependence, unspecified, uncomplicated; I12.9 Hypertensive chronic kidney disease with stage 1 through stage 4 chronic kidney disease, or unspecified chronic kidney disease; Z79.899 Other long term (current) drug therapy; Z80.0 Family history of malignant neoplasm of digestive organs; Z82.49 Family history of ischemic heart disease and other diseases of the circulatory system; Z85.038 Personal history of other malignant neoplasm of large intestine; Z83.3 Family history of diabetes mellitus; Z80.3 Family history of malignant neoplasm of breast
CPT/HCPCS: 36415; 70450; 70551; 71045; 76775; 80048; 80053; 81001; 82570; 82962; 83036; 83735; 84156; 84300; 84484; 85025; 93005; 93306; 93886; 94660; 97163; G0378; J1815; Q0162

== ENCOUNTER 2020-12-15 18:15 | Emergency (ER) | payer MEDICARE ==
[~2020-12-15] VITALS: Ht 182.9 cm; Wt 81.6 kg
[~2020-12-15 18:15] MED LIST changes: +CALC1TAB92 PO; -CALC600T57 PO; +CHOL100083 PO; +HYDR-4296 PO; +INSU1.2I SC; -LORA1TAB23 PO; +OMEGCAP2 PO; -ONDA-144 PO; +ONDA-188 PO; +ROPI0.254 PO; +SIMV40TA2 PO; -SIMV40TA96 PO
[2020-12-15 19:43] LABS: Basophils # (auto) 0.1 10 ^3/uL (0-0.2); Basophils % (auto) 1.1 % (0.0-2.0); Eosinophils # (auto) 0.3 10 ^3/uL (0-0.8); Eosinophils % (auto) 2.1 % (0.0-7.0); Hematocrit 43.5 % (41.0-53.0); Hemoglobin 14.5 g/dL (13.5-17.5); Lymphocytes # (auto) 1.3 10 ^3/uL (0.4-5.4); Lymphocytes % (auto) 10.6 % (10.0-50.0); Mean Corpuscular Hemoglobin 31.5 pg (28.0-32.0); Mean Corpuscular Hgb Conc. 33.2 g/dL (32.0-36.0); Mean Corpuscular Volume 94.7 fL (80.0-100.0); Monocytes % (auto) 8.1 % (0.0-12.0); Neutrophils # (auto) 9.6 10 ^3/uL (1.6-8.6); Neutrophils % (auto) 78.1 % (37.0-80.0); Red Blood Cells 4.59 10^6/uL (4.5-5.90); Red Cell Distribution Width 13.3 % (11.8-14.3); White Blood Cell 12.3 10^3/uL (4.4-10.8)
[2020-12-15 20:08] LABS: Anion Gap 5 (5-15); Blood Urea Nitrogen 39 mg/dL (7-18); Calcium 8.8 mg/dL (8.5-10.1); Carbon Dioxide 24 mmol/L (21-32); Chloride 111 mmol/L (98-107); Glucose 219 mg/dL (74-106); Potassium 4.6 mmol/L (3.5-5.1); Sodium 140 mmol/L (136-145)
[2020-12-15 20:13] LABS: Alanine Aminotransferase 16 U/L (16-61); Alkaline Phosphatase 54 U/L (45-117); Aspartate Aminotransferase 5 U/L (15-37); BUN/Creatinine Ratio 13.8; Bilirubin, Total 0.3 mg/dL (0.2-1.0); GFR African American 28 mL/min; GFR Non-African American 23 mL/min; Total Protein 6.9 g/dL (6.4-8.2)
[2020-12-16 02:13] LABS: Urine Amorphous Crystal FEW /hpf (None Seen); Urine Bacteria NONE SEEN /hpf (None Seen); Urine Blood Negative /uL (Negative); Urine Hyaline Cast MANY /lpf (0 - 2); Urine Mucus FEW (None Seen); Urine WBC 4 /hpf (0 - 3)
[2020-12-16] MEDS ORDERED: ACETAMINOPHEN 325 MG TAB PO ONE (03:00)
[2020-12-16] MEDS ORDERED: DexAMETHasone SOD PHOS 10MG/1ML VIAL INJ IV ONE (03:15)
[2020-12-16 03:35] VITALS: BP 118/85
== END 2020-12-16 03:55 | disposition home or self-care (01) ==
LOC: EDBD 18:15 → EDSEX 18:15 → ER 18:23
DX: F32.9 Major depressive disorder, single episode, unspecified (principal); I12.9 Hypertensive chronic kidney disease with stage 1 through stage 4 chronic kidney disease, or unspecified chronic kidney disease; E11.22 Type 2 diabetes mellitus with diabetic chronic kidney disease; N18.9 Chronic kidney disease, unspecified; J44.9 Chronic obstructive pulmonary disease, unspecified; Z87.891 Personal history of nicotine dependence; Z90.89 Acquired absence of other organs; Z79.4 Long term (current) use of insulin; Z79.899 Other long term (current) drug therapy; Z20.822 Contact with and (suspected) exposure to COVID-19
CPT/HCPCS: 36415; 71045; 80053; 81001; 82962; 83605; 84484; 85025; 87426; 93005; 96374; 99285; J1100

== ENCOUNTER 2022-03-12 12:38 | Inpatient (IN) | payer MEDICARE ==
[~2022-03-12] VITALS: Ht 175.3 cm; Wt 92.3 kg
[2022-03-12 15:00] LABS: Basophils # (auto) 0.1 10 ^3/uL (0-0.2); Basophils % (auto) 1.1 % (0.0-2.0); Eosinophils # (auto) 0.1 10 ^3/uL (0-0.8); Hematocrit 45.4 % (41.0-53.0); Hemoglobin 14.9 g/dL (13.5-17.5); Lymphocytes # (auto) 0.7 10 ^3/uL (0.4-5.4); Lymphocytes % (auto) 6.8 % (10.0-50.0); Mean Corpuscular Hemoglobin 30.9 pg (28.0-32.0); Mean Corpuscular Hgb Conc. 32.9 g/dL (32.0-36.0); Monocytes # (auto) 1.1 10 ^3/uL (0-1.3); Monocytes % (auto) 10.1 % (0.0-12.0); Neutrophils # (auto) 8.8 10 ^3/uL (1.6-8.6); Nucleated Red Blood Cells % 0.1 %; Red Blood Cells 4.82 10^6/uL (4.5-5.90); Red Cell Distribution Width 13.6 % (11.8-14.3); White Blood Cell 10.8 10^3/uL (4.4-10.8)
[2022-03-12 15:17] LABS: Albumin 3.4 g/dL (3.4-5.0); BUN/Creatinine Ratio 12.2; Calcium 9.3 mg/dL (8.5-10.1); Magnesium 2.3 mg/dL (1.6-2.6); Potassium 4.8 mmol/L (3.5-5.1)
[2022-03-12 15:25] LABS: Bilirubin, Total 0.6 mg/dL (0.2-1.0); Total Protein 6.8 g/dL (6.4-8.2)
[2022-03-12] MEDS ORDERED: DexAMETHasone SOD PHOS 10MG/1ML VIAL INJ IV ONE (17:30)
[2022-03-12] MEDS ORDERED: MAGNESIUM SULFATE 1GM/100ML 100 ML IV ONE (17:30)
[2022-03-12] MEDS ORDERED: cefTRIAXone 1GM/50ML D5W 50 ML IV ONE (17:30)
[2022-03-12] MEDS ORDERED: IPRATROPIUM BROM 0.5 MG/2.5ML INH SOL NEB ONE (17:30)
[2022-03-12] MEDS ORDERED: ALBUTEROL SULF 2.5 MG/0.5ML(0.5%) NEB SOLN NEB ONE (17:30)
[2022-03-12] MEDS ORDERED: AZITHROMYCIN 500MG/ 250ML 250 ML IV ONE (18:00)
[2022-03-12] MEDS ORDERED: InsuLIN REG 1unit/0.01ml Soln (100units/ml) IV ONE (20:15)
[2022-03-12] MEDS ORDERED: MORPHINE SULFATE INJ 2 MG/ml SYRG IV PRN (20:45)
[2022-03-12] MEDS ORDERED: DOCUSATE SOD 100 MG CAP PO PRN (20:45)
[2022-03-12] MEDS ORDERED: NITROGLYCERIN 0.4 MG SL TAB SL PRN (20:45)
[2022-03-12] MEDS ORDERED: ACETAMINOPHEN 325 MG TAB PO PRN (20:45)
[2022-03-12] MEDS ORDERED: DEXTROSE (50%) 50ML SYRG IV PRN (20:45)
[2022-03-12 21:07] VITALS: BP 171/98
[2022-03-12] MEDS: ACCU-CHEK COMFORT CURVE STRIP VI SCH (22:40)
[2022-03-12] MEDS: BUDESONIDE (INHALATION) 0.5 MG/2 ML NEB NEB SCH (22:50)
[2022-03-12] MEDS: HYDROcodone-ACET 5/325MG TAB PO PRN (22:53)
[2022-03-12] MEDS: SODIUM CHLOR 0.9% PF (SALINE LOCK) 10ML VIAL/SYR IV SCH (22:56)
[2022-03-12] MEDS: InsuLIN REG 1unit/0.01ml Soln (100units/ml) SC SCH (22:56)
[2022-03-13] VITALS (9 sets, daily range): BP systolic 92–173; BP diastolic 50–91
[2022-03-13 00:06] LABS: Urine Bacteria NONE SEEN /hpf (None Seen); Urine Blood Negative /uL (Negative); Urine Hyaline Cast FEW /lpf (0 - 2); Urine Mucus FEW (None Seen); Urine Specific Gravity 1.016 (1.001-1.035); Urine WBC 1 /hpf (0 - 3)
[2022-03-13] MEDS ORDERED: TRAM50TA2 PO (02:35)
[2022-03-13] MEDS ORDERED: TRAM-297 PO (02:35)
[2022-03-13] MEDS: ONDANSETRON HCL 4 MG/2 ML VIAL IV PRN (03:29)
[2022-03-13] MEDS: SODIUM CHLOR 0.9% PF (SALINE LOCK) 10ML VIAL/SYR IV SCH ×3 (05:28→21:56)
[2022-03-13] MEDS: ACCU-CHEK COMFORT CURVE STRIP VI SCH ×4 (06:22→22:15)
[2022-03-13] MEDS: InsuLIN REG 1unit/0.01ml Soln (100units/ml) SC SCH ×4 (06:29→22:15)
[2022-03-13 06:58] LABS: Basophils # (auto) 0 10 ^3/uL (0-0.2); Basophils % (auto) 0.2 % (0.0-2.0); Eosinophils # (auto) 0 10 ^3/uL (0-0.8); Hematocrit 43.7 % (41.0-53.0); Hemoglobin 13.9 g/dL (13.5-17.5); Lymphocytes # (auto) 0.3 10 ^3/uL (0.4-5.4); Lymphocytes % (auto) 3.4 % (10.0-50.0); Mean Corpuscular Hemoglobin 30.2 pg (28.0-32.0); Mean Corpuscular Hgb Conc. 31.8 g/dL (32.0-36.0); Mean Corpuscular Volume 95.1 fL (80.0-100.0); Monocytes # (auto) 0.1 10 ^3/uL (0-1.3); Monocytes % (auto) 1.2 % (0.0-12.0); Neutrophils # (auto) 9.7 10 ^3/uL (1.6-8.6); Neutrophils % (auto) 95.2 % (37.0-80.0); Red Blood Cells 4.59 10^6/uL (4.5-5.90); Red Cell Distribution Width 13.7 % (11.8-14.3); White Blood Cell 10.2 10^3/uL (4.4-10.8)
[2022-03-13 07:15] LABS: Calcium 9.1 mg/dL (8.5-10.1); Potassium 4.9 mmol/L (3.5-5.1)
[2022-03-13 07:18] LABS: Albumin 3.1 g/dL (3.4-5.0); BUN/Creatinine Ratio 13.6
[2022-03-13 07:21] LABS: Bilirubin, Total 0.3 mg/dL (0.2-1.0); Total Protein 6.4 g/dL (6.4-8.2)
[2022-03-13] MEDS: BUDESONIDE (INHALATION) 0.5 MG/2 ML NEB NEB SCH ×2 (07:34→17:51)
[2022-03-13] MEDS: AZITHROMYCIN 500MG/ 250ML 250 ML IV SCH (09:53)
[2022-03-13] MEDS: PANTOPRAZOLE 40 MG TAB PO SCH (09:54)
[2022-03-13] MEDS: HEPARIN SODIUM (PORCINE) 5000 UNITS/ML 1ML VIAL SC SCH ×2 (09:55→22:14)
[2022-03-13] MEDS: HYDROcodone-ACET 5/325MG TAB PO PRN ×2 (14:57→20:47)
[2022-03-13] MEDS: MORPHINE SULFATE INJ 2 MG/ml SYRG IV PRN (21:36)
[2022-03-13] MEDS: ZOLPIDEM TARTRATE 5 MG TAB PO PRN (22:25)
[2022-03-13] MEDS: hydrALAZINE HCL 20 MG/ML VL IV PRN (22:26)
[2022-03-14 05:00] VITALS: BP 134/58
[2022-03-14] MEDS: SODIUM CHLOR 0.9% PF (SALINE LOCK) 10ML VIAL/SYR IV SCH ×3 (07:11→23:17)
[2022-03-14] MEDS: ACCU-CHEK COMFORT CURVE STRIP VI SCH ×4 (07:12→23:04)
[2022-03-14] MEDS: InsuLIN REG 1unit/0.01ml Soln (100units/ml) SC SCH ×4 (07:31→23:18)
[2022-03-14 09:13] VITALS: BP 168/80
[2022-03-14] MEDS: ONDANSETRON HCL 4 MG/2 ML VIAL IV PRN (09:30)
[2022-03-14] MEDS: MORPHINE SULFATE INJ 2 MG/ml SYRG IV PRN ×3 (09:31→22:30)
[2022-03-14] MEDS: ATORVASTATIN 20 MG TAB PO SCH (10:14)
[2022-03-14] MEDS: AZITHROMYCIN 500MG/ 250ML 250 ML IV SCH (10:14)
[2022-03-14] MEDS: CITALOPRAM HYDROBR 20 MG TAB PO SCH (10:15)
[2022-03-14] MEDS: hydrALAZINE HCL 25 MG TAB PO SCH ×2 (10:15→23:16)
[2022-03-14] MEDS: PANTOPRAZOLE 40 MG TAB PO SCH (10:15)
[2022-03-14] MEDS: FUROSEMIDE 20 MG TAB PO SCH (10:15)
[2022-03-14] MEDS: LORazepam 0.5 MG TAB PO SCH ×2 (10:15→23:16)
[2022-03-14] MEDS: ASCORBIC ACID 500 MG TAB PO SCH (10:16)
[2022-03-14] MEDS: LOSARTAN POTASSIUM 50 MG TAB PO SCH (10:16)
[2022-03-14] MEDS: BUDESONIDE (INHALATION) 0.5 MG/2 ML NEB NEB SCH ×2 (10:19→22:15)
[2022-03-14] MEDS: HEPARIN SODIUM (PORCINE) 5000 UNITS/ML 1ML VIAL SC SCH ×2 (10:23→23:18)
[2022-03-14 13:00] VITALS: BP 156/73
[2022-03-14 17:00] VITALS: BP 161/84
[2022-03-14 22:00] VITALS: BP 152/68
[2022-03-14] MEDS: ZOLPIDEM TARTRATE 5 MG TAB PO PRN (23:16)
[2022-03-14] MEDS: HYDROcodone-ACET 5/325MG TAB PO PRN (23:56)
[2022-03-15 05:00] VITALS: BP 125/59
[2022-03-15] MEDS: guaiFENesin 200 MG/10 ML UD PO PRN ×2 (06:14→21:55)
[2022-03-15] MEDS: InsuLIN REG 1unit/0.01ml Soln (100units/ml) SC SCH ×4 (06:14→22:27)
[2022-03-15] MEDS: SODIUM CHLOR 0.9% PF (SALINE LOCK) 10ML VIAL/SYR IV SCH ×3 (06:20→22:07)
[2022-03-15] MEDS: ACCU-CHEK COMFORT CURVE STRIP VI SCH ×4 (06:45→22:04)
[2022-03-15] MEDS: ALBUTEROL SULF 2.5 MG/0.5ML(0.5%) NEB SOLN NEB PRN ×3 (07:33→21:38)
[2022-03-15] MEDS: ACETYLCYSTEINE 10 %(100MG/ML) SOL 4ML NEB SCH ×3 (07:33→21:39)
[2022-03-15] MEDS: BUDESONIDE (INHALATION) 0.5 MG/2 ML NEB NEB SCH ×2 (07:34→21:39)
[2022-03-15] MEDS: hydrALAZINE HCL 20 MG/ML VL IV PRN (08:25)
[2022-03-15] MEDS: MORPHINE SULFATE INJ 2 MG/ml SYRG IV PRN ×2 (08:26→19:49)
[2022-03-15] MEDS: ONDANSETRON HCL 4 MG/2 ML VIAL IV PRN ×2 (08:38→19:32)
[2022-03-15 09:00] VITALS: BP 155/79
[2022-03-15] MEDS: AZITHROMYCIN 500MG/ 250ML 250 ML IV SCH (10:38)
[2022-03-15] MEDS: FUROSEMIDE 20 MG TAB PO SCH (10:38)
[2022-03-15] MEDS: LORazepam 0.5 MG TAB PO SCH ×2 (10:39→22:09)
[2022-03-15] MEDS: LOSARTAN POTASSIUM 50 MG TAB PO SCH (10:39)
[2022-03-15] MEDS: PANTOPRAZOLE 40 MG TAB PO SCH (10:39)
[2022-03-15] MEDS: ASCORBIC ACID 500 MG TAB PO SCH (10:39)
[2022-03-15] MEDS: ATORVASTATIN 20 MG TAB PO SCH (10:39)
[2022-03-15] MEDS: CITALOPRAM HYDROBR 20 MG TAB PO SCH (10:40)
[2022-03-15] MEDS: hydrALAZINE HCL 25 MG TAB PO SCH ×2 (10:40→21:56)
[2022-03-15] MEDS: HEPARIN SODIUM (PORCINE) 5000 UNITS/ML 1ML VIAL SC SCH ×2 (10:51→22:03)
[2022-03-15] MEDS: HYDROcodone-ACET 5/325MG TAB PO PRN (10:51)
[2022-03-15 13:00] VITALS: BP 130/62
[2022-03-15 17:00] VITALS: BP 140/80
[2022-03-15 20:00] VITALS: BP 125/59
[2022-03-15] MEDS: ZOLPIDEM TARTRATE 5 MG TAB PO PRN (21:56)
[2022-03-15 22:00] VITALS: BP 143/63
[2022-03-16 01:00] VITALS: BP 143/63
[2022-03-16] MEDS: MORPHINE SULFATE INJ 2 MG/ml SYRG IV PRN ×3 (01:11→20:54)
[2022-03-16 05:00] VITALS: BP 137/70
[2022-03-16] MEDS: HYDROcodone-ACET 5/325MG TAB PO PRN (05:05)
[2022-03-16] MEDS: SODIUM CHLOR 0.9% PF (SALINE LOCK) 10ML VIAL/SYR IV SCH ×3 (06:36→22:26)
[2022-03-16] MEDS: InsuLIN REG 1unit/0.01ml Soln (100units/ml) SC SCH ×4 (07:02→22:11)
[2022-03-16] MEDS: ACCU-CHEK COMFORT CURVE STRIP VI SCH ×4 (07:02→22:07)
[2022-03-16] MEDS: ACETYLCYSTEINE 10 %(100MG/ML) SOL 4ML NEB SCH ×3 (07:21→18:39)
[2022-03-16] MEDS: ALBUTEROL SULF 2.5 MG/0.5ML(0.5%) NEB SOLN NEB PRN ×3 (07:21→18:39)
[2022-03-16 09:00] VITALS: BP 152/74
[2022-03-16] MEDS: AZITHROMYCIN 500MG/ 250ML 250 ML IV SCH (10:49)
[2022-03-16] MEDS: CITALOPRAM HYDROBR 20 MG TAB PO SCH (10:50)
[2022-03-16] MEDS: ASCORBIC ACID 500 MG TAB PO SCH (10:50)
[2022-03-16] MEDS: FUROSEMIDE 20 MG TAB PO SCH (10:50)
[2022-03-16] MEDS: ATORVASTATIN 20 MG TAB PO SCH (10:50)
[2022-03-16] MEDS: LORazepam 0.5 MG TAB PO SCH ×2 (10:50→22:06)
[2022-03-16] MEDS: PANTOPRAZOLE 40 MG TAB PO SCH (10:50)
[2022-03-16] MEDS: hydrALAZINE HCL 25 MG TAB PO SCH ×2 (10:50→22:07)
[2022-03-16] MEDS: LOSARTAN POTASSIUM 50 MG TAB PO SCH (10:51)
[2022-03-16] MEDS: HEPARIN SODIUM (PORCINE) 5000 UNITS/ML 1ML VIAL SC SCH ×2 (10:58→22:10)
[2022-03-16] MEDS: BUDESONIDE (INHALATION) 0.5 MG/2 ML NEB NEB SCH ×2 (11:10→18:39)
[2022-03-16] MEDS: ONDANSETRON HCL 4 MG/2 ML VIAL IV PRN (11:14)
[2022-03-16 13:00] VITALS: BP 145/65
[2022-03-16 17:00] VITALS: BP 153/76
[2022-03-16] MEDS: guaiFENesin 200 MG/10 ML UD PO PRN (20:53)
[2022-03-16 22:00] VITALS: BP_SYST 133; BP_SYST 151; BP_DIAS 45; BP_DIAS 75
[2022-03-16] MEDS: ZOLPIDEM TARTRATE 5 MG TAB PO PRN (22:26)
[2022-03-17] MEDS: HYDROcodone-ACET 5/325MG TAB PO PRN ×2 (00:02→09:13)
[2022-03-17 05:00] VITALS: BP 155/72
[2022-03-17] MEDS: SODIUM CHLOR 0.9% PF (SALINE LOCK) 10ML VIAL/SYR IV SCH ×3 (06:31→22:36)
[2022-03-17] MEDS: ACCU-CHEK COMFORT CURVE STRIP VI SCH ×4 (06:31→22:33)
[2022-03-17] MEDS: ALBUTEROL SULF 2.5 MG/0.5ML(0.5%) NEB SOLN NEB PRN ×3 (06:34→19:19)
[2022-03-17] MEDS: ACETYLCYSTEINE 10 %(100MG/ML) SOL 4ML NEB SCH ×3 (06:35→19:19)
[2022-03-17] MEDS: BUDESONIDE (INHALATION) 0.5 MG/2 ML NEB NEB SCH ×2 (06:35→19:19)
[2022-03-17] MEDS: InsuLIN REG 1unit/0.01ml Soln (100units/ml) SC SCH ×4 (06:41→22:55)
[2022-03-17 06:57] LABS: BUN/Creatinine Ratio 18.6; Calcium 7.9 mg/dL (8.5-10.1); Potassium 4.4 mmol/L (3.5-5.1)
[2022-03-17 09:00] VITALS: BP 157/83
[2022-03-17] MEDS: AZITHROMYCIN 500MG/ 250ML 250 ML IV SCH (09:33)
[2022-03-17] MEDS: LOSARTAN POTASSIUM 50 MG TAB PO SCH (09:34)
[2022-03-17] MEDS: hydrALAZINE HCL 25 MG TAB PO SCH ×2 (09:34→22:32)
[2022-03-17] MEDS: CITALOPRAM HYDROBR 20 MG TAB PO SCH (09:34)
[2022-03-17] MEDS: PANTOPRAZOLE 40 MG TAB PO SCH (09:35)
[2022-03-17] MEDS: ATORVASTATIN 20 MG TAB PO SCH (09:35)
[2022-03-17] MEDS: ASCORBIC ACID 500 MG TAB PO SCH (09:35)
[2022-03-17] MEDS: FUROSEMIDE 20 MG TAB PO SCH (09:35)
[2022-03-17] MEDS: HEPARIN SODIUM (PORCINE) 5000 UNITS/ML 1ML VIAL SC SCH ×2 (09:36→22:00)
[2022-03-17] MEDS: LORazepam 0.5 MG TAB PO SCH ×2 (09:37→22:32)
[2022-03-17 13:00] VITALS: BP 146/76
[2022-03-17] MEDS: guaiFENesin 200 MG/10 ML UD PO PRN (20:04)
[2022-03-17] MEDS: MORPHINE SULFATE INJ 2 MG/ml SYRG IV PRN (20:07)
[2022-03-17 22:00] VITALS: BP 165/75
[2022-03-18] VITALS (7 sets, daily range): BP systolic 125–151; BP diastolic 65–87
[2022-03-18] MEDS: HYDROcodone-ACET 5/325MG TAB PO PRN ×2 (00:36→13:53)
[2022-03-18] MEDS: ZOLPIDEM TARTRATE 5 MG TAB PO PRN (00:53)
[2022-03-18] MEDS: MORPHINE SULFATE INJ 2 MG/ml SYRG IV PRN ×3 (04:32→20:56)
[2022-03-18] MEDS: SODIUM CHLOR 0.9% PF (SALINE LOCK) 10ML VIAL/SYR IV SCH ×3 (06:41→20:55)
[2022-03-18] MEDS: ACCU-CHEK COMFORT CURVE STRIP VI SCH ×4 (06:41→22:49)
[2022-03-18] MEDS: InsuLIN REG 1unit/0.01ml Soln (100units/ml) SC SCH ×4 (06:44→22:50)
[2022-03-18] MEDS: AZITHROMYCIN 500MG/ 250ML 250 ML IV SCH (09:05)
[2022-03-18] MEDS: FUROSEMIDE 20 MG TAB PO SCH (09:05)
[2022-03-18] MEDS: PANTOPRAZOLE 40 MG TAB PO SCH (09:06)
[2022-03-18] MEDS: ATORVASTATIN 20 MG TAB PO SCH (09:06)
[2022-03-18] MEDS: hydrALAZINE HCL 25 MG TAB PO SCH ×2 (09:06→22:48)
[2022-03-18] MEDS: LORazepam 0.5 MG TAB PO SCH ×2 (09:06→22:48)
[2022-03-18] MEDS: ASCORBIC ACID 500 MG TAB PO SCH (09:06)
[2022-03-18] MEDS: LOSARTAN POTASSIUM 50 MG TAB PO SCH (09:06)
[2022-03-18] MEDS: CITALOPRAM HYDROBR 20 MG TAB PO SCH (09:07)
[2022-03-18] MEDS: HEPARIN SODIUM (PORCINE) 5000 UNITS/ML 1ML VIAL SC SCH ×2 (10:00→22:00)
[2022-03-18] MEDS ORDERED: PRED20TA2 PO (14:23)
[2022-03-18] MEDS ORDERED: AZIT500T66 PO (14:23)
[2022-03-18] MEDS: ACETYLCYSTEINE 10 %(100MG/ML) SOL 4ML NEB SCH ×2 (15:19→22:21)
[2022-03-18] MEDS: BUDESONIDE (INHALATION) 0.5 MG/2 ML NEB NEB SCH ×2 (15:19→22:21)
[2022-03-18] MEDS: ALBUTEROL SULF 2.5 MG/0.5ML(0.5%) NEB SOLN NEB PRN ×3 (15:19→22:21)
[2022-03-18] MEDS: guaiFENesin 200 MG/10 ML UD PO PRN (22:50)
[2022-03-19] MEDS: HYDROcodone-ACET 5/325MG TAB PO PRN (01:46)
[2022-03-19 02:49] VITALS: BP 125/77
[2022-03-19 05:00] VITALS: BP 144/77
[2022-03-19] MEDS: SODIUM CHLOR 0.9% PF (SALINE LOCK) 10ML VIAL/SYR IV SCH (05:55)
[2022-03-19] MEDS: ACCU-CHEK COMFORT CURVE STRIP VI SCH ×2 (05:58→11:39)
[2022-03-19] MEDS: InsuLIN REG 1unit/0.01ml Soln (100units/ml) SC SCH ×2 (06:01→11:39)
[2022-03-19] MEDS: ALBUTEROL SULF 2.5 MG/0.5ML(0.5%) NEB SOLN NEB PRN (07:03)
[2022-03-19] MEDS: ACETYLCYSTEINE 10 %(100MG/ML) SOL 4ML NEB SCH (07:03)
[2022-03-19 08:00] VITALS: BP 146/69
[2022-03-19 09:00] VITALS: BP 146/69
[2022-03-19] MEDS: HEPARIN SODIUM (PORCINE) 5000 UNITS/ML 1ML VIAL SC SCH (10:00)
[2022-03-19] MEDS: BUDESONIDE (INHALATION) 0.5 MG/2 ML NEB NEB SCH (10:25)
[2022-03-19] MEDS: ASCORBIC ACID 500 MG TAB PO SCH (11:12)
[2022-03-19] MEDS: ATORVASTATIN 20 MG TAB PO SCH (11:12)
[2022-03-19] MEDS: CITALOPRAM HYDROBR 20 MG TAB PO SCH (11:13)
[2022-03-19] MEDS: FUROSEMIDE 20 MG TAB PO SCH (11:13)
[2022-03-19] MEDS: LOSARTAN POTASSIUM 50 MG TAB PO SCH (11:13)
[2022-03-19] MEDS: LORazepam 0.5 MG TAB PO SCH (11:13)
[2022-03-19] MEDS: AZITHROMYCIN 500MG/ 250ML 250 ML IV SCH (11:14)
[2022-03-19] MEDS: PANTOPRAZOLE 40 MG TAB PO SCH (11:14)
[2022-03-19] MEDS: hydrALAZINE HCL 25 MG TAB PO SCH (11:14)
[2022-03-19] MEDS: MORPHINE SULFATE INJ 2 MG/ml SYRG IV PRN (11:25)
[2022-03-19 13:00] VITALS: BP 196/87
[2022-03-19] MEDS ORDERED: HYDR-4902 PO (13:25)
[2022-03-19] MEDS ORDERED: DEXT1SYP9 GT (13:25)
== END 2022-03-19 14:00 | disposition home or self-care (01) | DRG 190 ==
LOC: ER 12:38 → EDBD 12:38 → OVERFLOW 20:44 → WEST WING 03-13 00:48
PROVIDERS: ADMIT Nurse Practitioner; ATTEND Nurse Practitioner
DX: J44.0 Chronic obstructive pulmonary disease with (acute) lower respiratory infection (principal); J18.9 Pneumonia, unspecified organism; J44.1 Chronic obstructive pulmonary disease with (acute) exacerbation; E11.22 Type 2 diabetes mellitus with diabetic chronic kidney disease; F32.A Depression, unspecified; F41.9 Anxiety disorder, unspecified; Z20.822 Contact with and (suspected) exposure to COVID-19; G47.00 Insomnia, unspecified; I12.9 Hypertensive chronic kidney disease with stage 1 through stage 4 chronic kidney disease, or unspecified chronic kidney disease; N18.9 Chronic kidney disease, unspecified; Z87.891 Personal history of nicotine dependence; Z80.3 Family history of malignant neoplasm of breast; Z82.49 Family history of ischemic heart disease and other diseases of the circulatory system; Z83.3 Family history of diabetes mellitus; Z85.038 Personal history of other malignant neoplasm of large intestine
CPT/HCPCS: 36415; 36600; 71045; 80048; 80053; 81001; 82010; 82805; 82962; 83690; 83735; 83880; 84484; 85025; 87426; 93005; 94640; 96365; 96368; 96372; 96375; 97163; G0378; J0696; J1100; J1815; J2405